=== PATIENT | male | born 1950 | race Caucasian/White ===

== ENCOUNTER 2022-05-06 17:15 | Emergency (ER) | payer OTHER, SELFPAY ==
[2022-05-06 17:30] VITALS: BP 137/79; PULSE 71; RESP 22; TEMP 36.7; O2SAT 96
--- NOTE | 2022-05-06 17:33 | DI.RAD.S_ITS ---
PROCEDURE: XR FINGER RT MIN 2V INDICATIONS: table saw injury TECHNIQUE: AP hand, 2 views of the 3rd and 4th finger(s) acquired. COMPARISON: None. FINDINGS: Bones: No fractures or dislocations. No suspicious bony lesions. Age-appropriate bony degenerative changes are seen. There is widening of the scapholunate interface. Soft tissues: Mild soft tissue irregularity can be seen of the 3rd and 4th fingers, with soft tissue gas and overlying bandaging material. No radiopaque foreign bodies are seen. IMPRESSION: Soft tissue injury, without a isiah associated fracture. No radiopaque foreign bodies are seen. If there is strong suspicion for developing osteomyelitis, please consider a dedicated MRI without and with contrast for further evaluation (assuming that there is no contraindication to MRI). Note is made of scapholunate interface widening. A scapholunate ligament tear is presumed. If it would be helpful for clinical management decision making, please consider a dedicated, scheduled wrist MRI for further evaluation (assuming that there is no contraindication). If there is strong clinical concern for a ligamentous abnormality, this should be performed according to the MR arthrogram protocol. Dictated by: Jose Perla M.D. on 05/06/2022 at 16:52 Approved by: Jose Perla M.D. on 05/06/2022 at 16:53
[2022-05-06] MEDS: ACETAMINOPHEN 325 MG TABLET 975 MG PO (18:13)
[2022-05-06] MEDS: TET,DIPH,PERTUSS(ACELL),VAC/PF 0.5 ML SYRINGE IM (18:17)
--- NOTE | 2022-05-06 18:44 | ED_ITS ---
HPI - Wound/Laceration <Edwin Daugherty PA-C - Last Filed: 05/06/22 20:41> General Chief Complaint: Wound/Laceration Stated Complaint: Rt Hand Finger(S) Laceration Time Seen by Provider: 05/06/22 18:12 Source: patient Mode of arrival: Ambulatory History of Present Illness HPI narrative: Patient is a 71-year-old male who presents to the emergency department for evaluation of right 2nd and 3rd digit lacerations. Patient explains that he cut his right 2nd 3rd fingers on a table saw at approximately 4:30 p.m. today. He states he was able to get bleeding under control with bandages at home and states that he does have good sensation throughout the fingers. Of note, he denies pain or injury elsewhere. He states he is unsure of when his most recent tetanus shot was administered. He denies fever, chills, chest pain, cough, shortness of breath, nausea, vomiting, diarrhea, constipation, abdominal pain, dysuria, hematuria, or any other concerning symptoms. No further concerns were voiced at this time. Related Data Previous Rx's Medication Instructions Recorded cephalexin 500 mg capsule 500 mg PO BID 7 days #14 caps 05/06/22 Review of Systems <Edwin Daugherty PA-C - Last Filed: 05/06/22 20:41> Constitutional Constitutional: Denies chills, Denies fatigue, Denies fever(s), Denies frequent falls, Denies lethargy and Denies weakness ENT Ears, Nose, Mouth, and Throat: Denies neck pain Cardiovascular Cardiovascular: Denies chest pain, Denies irregular heart rhythm, Denies lightheadedness, Denies palpitations, Denies dyspnea, Denies dyspnea on exertion and Denies orthopnea Respiratory Respiratory: Denies dyspnea and Denies dyspnea on exertion Gastrointestinal Gastrointestinal: Denies abdominal pain, Denies change in bowel habits, Denies diarrhea, Denies nausea and Denies vomiting Genitourinary Genitourinary: Denies hematuria, Denies flank pain, Denies urinary incontinence and Denies urinary urgency Musculoskeletal Musculoskeletal: Denies back pain, Denies muscle weakness, Denies neck pain, Denies numbness and Denies tingling Integumentary/Breasts Skin/Breast: Denies pruritus, Denies erythema, Denies rash and Reports wounds (Right 2nd and 3rd digit lacerations) Neurologic Neurologic: Denies frequent falls, Denies numbness, Denies tingling and Denies weakness Endocrine Endocrine: Denies fatigue and Denies palpitations Exam <Edwin Daugherty PA-C - Last Filed: 05/06/22 20:41> Narrative Exam Narrative: GENERAL: 71 year old patient appears stated age. Well-developed patient, in no acute distress. HEAD: Atraumatic. Normocephalic. EYES: Pupils equal round and reactive. Extraocular motions intact. No scleral icterus. No injection or drainage. ENT: Nose without bleeding, purulent drainage. Throat without erythema, tonsillar hypertrophy or exudate. Airway patent. NECK: Trachea midline. Non tender CARDIOVASCULAR: Regular rate and rhythm without murmurs, gallops, or rubs. RESPIRATORY: Clear to auscultation. Breath sounds equal bilaterally. No wheezes, rales, or rhonchi. GASTROINTESTINAL: Abdomen soft, non-tender, nondistended. EXTREMITIES: No edema or joint tenderness. BACK: Nontender without deformity or crepitance. No flank tenderness. NEURO: AOx3. SKIN: No rash or erythema of visible areas. Jagged lacerations noted to the right 2nd and 3rd digits over the palmar aspect of the right hand. Initial Vital Signs Initial Vital Signs: Vital Signs Temperature 98.1 F 05/06/22 17:30 Pulse Rate 71 05/06/22 17:30 Respiratory Rate 22 05/06/22 17:30 Blood Pressure 137/79 05/06/22 17:30 Pulse Oximetry 96 05/06/22 17:30 Oxygen Delivery Method 05/06/22 17:30 <Vita Patton MD - Last Filed: 05/07/22 02:28> Initial Vital Signs Initial Vital Signs: Vital Signs Temperature 98.1 F 05/06/22 17:30 Pulse Rate 71 05/06/22 17:30 Respiratory Rate 22 05/06/22 17:30 Blood Pressure 137/79 05/06/22 17:30 Pulse Oximetry 96 05/06/22 17:30 Oxygen Delivery Method 05/06/22 17:30 Procedures <Edwin Daugherty PA-C - Last Filed: 05/06/22 20:41> Laceration Repair Laceration 1: Time of procedure: 20:11 Site: hand (Second and 3rd digits) Side (If applicable): right Size (cm): 3 Description: irregular Depth: simple, single layer Local Anesthetic: lidocaine 1% Amount of anesthesia used (mL): 10 Pre-repair: wound explored, irrigated extensively, deep structures intact and cleansed with chlorhexadine Skin layer closed with: nylon Skin layer suture size: 5-0 Number of sutures: 26 Technique: simple, interrupted Course <Edwin Daugherty PA-C - Last Filed: 05/06/22 20:41> Course Course Narrative: Digital block performed, wound edges approximated with 26 total nylon sutures of 4-0 and 5-0 size. Patient tolerated procedure well. Wound edges approximated as best as possible considering extent of wound. Patient's tetanus shot updated today. Orders Ordered: ED Orders 05/06/22 17:33 XR finger RT min 2V Stat Discontinued Medications Acetaminophen (Acetaminophen 325 Mg Tablet) 975 mg PO NOW ONE Stop: 05/06/22 18:08 Last Admin: 05/06/22 18:13 Dose: 975 mg Documented By: PAPI Diphtheria/Tetanus/Acell Pertussis (Tet,Diph,Pertuss(Acell),Vac/Pf 0.5 Ml Syringe) 0.5 ml IM .ONCE ONE Stop: 05/06/22 18:15 Last Admin: 05/06/22 18:17 Dose: 0.5 ml Documented By: PAPI Vital Signs Vital signs: Vital Signs - 8 hr 05/06/22 17:30 Temperature 98.1 F Pulse Rate 71 Respiratory Rate 22 Blood Pressure 137/79 Pulse Oximetry 96 Oxygen Delivery Method Room Air <Vita Patton MD - Last Filed: 05/07/22 02:28> Orders Ordered: ED Orders 05/06/22 17:33 XR finger RT min 2V Stat Discontinued Medications Acetaminophen (Acetaminophen 325 Mg Tablet) 975 mg PO NOW ONE Stop: 05/06/22 18:08 Last Admin: 05/06/22 18:13 Dose: 975 mg Documented By: PAPI Diphtheria/Tetanus/Acell Pertussis (Tet,Diph,Pertuss(Acell),Vac/Pf 0.5 Ml Syringe) 0.5 ml IM .ONCE ONE Stop: 05/06/22 18:15 Last Admin: 05/06/22 18:17 Dose: 0.5 ml Documented By: PAPI Vital Signs Vital signs: Vital Signs - 8 hr 05/06/22 17:30 Temperature 98.1 F Pulse Rate 71 Respiratory Rate 22 Blood Pressure 137/79 Pulse Oximetry 96 Oxygen Delivery Method Room Air MDM - Wound/Laceration <Edwin Daugherty PA-C - Last Filed: 05/06/22 20:41> Imaging Data Extremity x-ray #1: Radiologist's Impression: PROCEDURE:? XR FINGER RT MIN 2V ? INDICATIONS:? table saw injury ? TECHNIQUE:? AP hand, 2 views of the 3rd and 4th finger(s) acquired.? ? COMPARISON:? None. ? FINDINGS:? ? Bones:? No fractures or dislocations.? No suspicious bony lesions.? ? Age-appropriate bony degenerative changes are seen.? There is widening of the scapholunate interface.? ? Soft tissues:? Mild soft tissue irregularity can be seen of the 3rd and 4th fin gers, with soft tissue gas and overlying bandaging material.? No radiopaque foreign bodies are seen. ? IMPRESSION:? Soft tissue injury, without a isiah associated fracture.? No radiopaque foreign bodies are seen.? ? If there is strong suspicion for developing osteomyelitis, please consider a dedicated MRI without and with contrast for further evaluation (assuming that there is no contraindication to MRI).? ? Note is made of scapholunate interface widening.? A scapholunate ligament tear is presumed. If it would be helpful for clinical management decision making, please consider a dedicated, scheduled wrist MRI for further evaluation (assuming that there is no contraindication).? If there is strong clinical concern for a ligamentous abnormality, this should be performed according to the MR arthrogram protocol.? ? ? Dictated by: Jose Perla M.D. on 05/06/2022 at 16:52 ? ? Approved by: Jose Perla M.D. on 05/06/2022 at 16:53? MDM Narrative Medical decision making narrative: Differential diagnosis to consider but limited to superficial laceration versus deep tissue laceration versus abscess formation versus tendon rupture. Wound edges were approximated with 4-0 and 5-0 nylon sutures. I instructed the patient to have the sutures remain in place for 7-10 days and to be evaluated by a medical professional before removal. Additionally, I discussed plan to start the patient on antibiotics. Patient expresses understanding and agrees to plan. He states that you follow-up with primary care to receive referral for hand surgery follow-up. Strict return precautions were discussed with the patient prior to discharge. Discharge Plan Departure Patient Disposition: Home Clinical Impression: Laceration of right index finger, Laceration of right middle finger Instructions: DI for Laceration Repair Activity Restrictions/Additional Instructions: *You have been diagnosed with a right index finger laceration, right middle finger laceration *What to do: *Please continue to take your regular medications as directed. [X] New medication prescriptions sent to your pharmacy: [facility] [ ] New medication written as a paper prescription [ ] No new medications given You were evaluated in the emergency department today for right 2nd and 3rd digit lacerations. Wound edges were approximated with nylon sutures in the emergency department. The sutures need to remain in place for 7-10 days, please follow-up with the primary care provider for further evaluation and management. I have prescribed you a course antibiotics and sent them to your preferred pharmacy. Please follow-up with the primary care provider regarding a referral to Hand surgery for further evaluation. Please do not hesitate to return to the emergency department if you experience fever, swelling around the laceration site, discharge from the lacerations, or any other concerning symptoms. *Please follow up with your primary care provider in 2-3 days, call for an appointment. Let them know you were seen in the Emergency Department and that we ask that you be seen in follow up. We will electronically transmit a record of today's note if your PCP is in our system *If you do not have a primary care provider please contact the [facility] Resource line at [phone]. They will ask some questions about your medical history and help get you set up with a doctor in the community. *Return to Emergency Department if you should have any new, worsening or concerning symptoms, such as [fever greater than 101 F, shaking chills, worsening pain, persistent vomiting or other bothersome symptoms] Prescriptions: New cephalexin 500 mg capsule 500 mg PO BID 7 Days Qty: 14 0RF Referrals: Phillip Marie ARNP [Primary Care Provider] - Visit Report Forms: Patient Portal/API <Vita Patton MD - Last Filed: 05/07/22 02:28> [facility] Audraature Attestation: I was immediately available in the department for consultation throughout this patient's visit. Patient was examined concurrently with Mr. Daugherty. Oversight of digital blocks and direct oversight with suturing was done. I agree with documentation as above. Vita Patton MD
--- NOTE | 2022-05-06 19:12 | PC.NURSE ---
Pt arrives with laceration injuries to the 3rd and 4th right hand fingers. States he was using a skillsaw at home and it twisted out of his hand. Right hand was irrigated with saline and thoroughly washed with Betasept. Provider at the bedside. Nerve block applied to the right hand by Dr. Patton and [place] [facility]. Tolerated wound care well.
--- NOTE | 2022-05-06 20:36 | PC.NURSE ---
fingers cleaned with water and wrapped with 4x4s and guaze
== END 2022-05-06 20:37 | disposition home or self-care (01) ==
PROVIDERS: Emergency Provider Physician Assistant; PCP Nurse Practitioner Family
DX: S61.210A Laceration without foreign body of right index finger without damage to nail, initial encounter (principal); S61.212A Laceration without foreign body of right middle finger without damage to nail, initial encounter; W27.0XXA Contact with workbench tool, initial encounter; Z23 Encounter for immunization
CPT/HCPCS: 12002; 73140; 90471; 99283; 90715

== ENCOUNTER 2023-05-02 11:46 | Emergency (ER) | payer OTHER, SELFPAY ==
[2023-05-02 11:50] VITALS: BP 126/76; PULSE 86; RESP 18; TEMP 36.8; O2SAT 98; BMI 35.6
--- NOTE | 2023-05-02 13:05 | DI.RAD.S_ITS ---
PROCEDURE: XR TIBIA FUBULA RT 2V INDICATIONS: for subcutaneous air, cellulitis, no wound TECHNIQUE: 2 views of the tibia and fibula were acquired. COMPARISON: None. FINDINGS: Bones: No fractures or dislocations. No suspicious bony lesions. Soft tissues: No suspicious soft tissue calcifications or masses. No subcutaneous gas. IMPRESSION: No subcutaneous gas or bony erosion. Dictated by: Guerrero Bueno M.D. on 05/02/2023 at 13:50 Approved by: Guerrero Bueno M.D. on 05/02/2023 at 13:51
--- NOTE | 2023-05-02 13:07 | ED_ITS ---
HPI - Extremity Problem <DONTAE Velásquez - Last Filed: 05/02/23 15:12> General Chief complaint: Extremity Problem,Nontraumatic Stated complaint: rash on lower LT leg T-4 getting worse Time Seen by Provider: 05/02/23 12:54 Source: patient Mode of arrival: Ambulatory History of Present Illness HPI Narrative: This is a 72-year-old male who presents to the emergency department complaining of a rash to his left lower extremity that is painful when dependent that he noticed approximately 4 days ago and has been progressive. He states that four days ago he started feeling poorly after doing some yd work during the day and had fatigue, chills, fever, vomiting x2 and states that he felt poorly for those 2 days and started to feel better on the 3rd day, he states that is when the rash started to get worse on his lower leg, denies any wound or any recent trauma. States that he is had a history of pulmonary embolus in the past after surgery but this was 10 years ago, he is not anticoagulated, denies any shortness of breath, chest pain, dizziness, or other symptom. He states that he felt unsteady father's 1st 2 days when he was ill. Denies any upper respiratory symptoms but states that he was taking Benadryl to help him sleep because he was not able to sleep. He states that 2 days of taking Benadryl to sleep helped him feel better and then now he is concerned about necrotizing skin infection to his left lower extremity. Patient has an avulsed toenail on left that he states he stubbed and it is partially removed Related Data Previous Rx's Medication Instructions Recorded doxycycline hyclate 100 mg capsule 100 mg PO BID 10 days #20 caps 05/02/23 hydrocodone 5 mg-acetaminophen 325 1 tab PO TID PRN pain #10 tabs 05/02/23 mg tablet Allergies Allergy/AdvReac Type Severity Reaction Status Date / Time No Known Drug Allergies Allergy Verified 05/02/23 11:57 Review of Systems <DONTAE Velásquez - Last Filed: 05/02/23 15:12> Review of Systems ROS Unobtainable: All systems reviewed & are unremarkable except as noted in HPI and below Patient History <DONTAE Velásquez - Last Filed: 05/02/23 15:12> Social History Smoking Status: Former smoker Smoking Status: Former smoker alcohol intake frequency: holidays/special occasions only Substance Use Type: does not use Exam <DONTAE Velásquez - Last Filed: 05/02/23 15:12> Narrative Exam Narrative: Reviewed vitals signs and nursing notes. General: Pleasant, sitting upright, in no acute distress, well groomed, afebrile HEENT: symmetrical facial expressions, moist mucous membranes, neck is supple CV: regular rate and rhythm, warm extremities Respiratory: normal work of breathing, without tachypnea or hypoxia. MSK: moves all extremities, no weakness, normal tone, ambulatory without deficit, erythematous left lower extremity concerning for cellulitis, it is not circumferential but it is the anterior and 3/4 of the lower left extremity, no wound, no drainage, no blisters, no gastrocnemius tenderness to palpation, negative Homans sign and no circumferential edema, erythematous region is warm to touch and tender Skin: brisk capillary refill, without rash or wound Neuro: clear speech and normal cognition, A&O x3, GCS 15, no focal motor or sensation deficits Initial Vital Signs Initial Vital Signs: Vital Signs Temperature 98.2 F 05/02/23 11:50 Pulse Rate 86 05/02/23 11:50 Respiratory Rate 18 05/02/23 11:50 Blood Pressure 126/76 05/02/23 11:50 Pulse Oximetry 98 05/02/23 11:50 Oxygen Delivery Method Room Air 05/02/23 11:50 <Adonay Rudolph DO - Last Filed: 05/03/23 08:56> Initial Vital Signs Initial Vital Signs: Vital Signs Temperature 98.2 F 05/02/23 11:50 Pulse Rate 86 05/02/23 11:50 Respiratory Rate 18 05/02/23 11:50 Blood Pressure 126/76 05/02/23 11:50 Pulse Oximetry 98 05/02/23 11:50 Oxygen Delivery Method Room Air 05/02/23 11:50 Course <DONTAE Velásquez - Last Filed: 05/02/23 15:12> Orders Ordered: Discontinued Medications Doxycycline Hyclate (Doxycycline Hyclate 100 Mg Tablet) 100 mg PO NOW ONE Stop: 05/02/23 13:18 Last Admin: 05/02/23 14:44 Dose: 100 mg Documented By: PAPI Ceftriaxone Sodium 2,000 mg/ (Sodium Chloride) 100 mls @ 200 mls/hr IV NOW ONE Stop: 05/02/23 13:18 Last Infusion: 05/02/23 15:16 Dose: 0 mls/hr Documented By: Admin: 05/02/23 14:44 Dose: 200 mls/hr Documented By: PAPI Vital Signs Vital signs: Vital Signs - 8 hr 05/02/23 11:50 Temperature 98.2 F Pulse Rate 86 Respiratory Rate 18 Blood Pressure 126/76 Pulse Oximetry 98 Oxygen Delivery Method Room Air <Adonay Rudolph DO - Last Filed: 05/03/23 08:56> Orders Ordered: Discontinued Medications Doxycycline Hyclate (Doxycycline Hyclate 100 Mg Tablet) 100 mg PO NOW ONE Stop: 05/02/23 13:18 Last Admin: 05/02/23 14:44 Dose: 100 mg Documented By: PAPI Ceftriaxone Sodium 2,000 mg/ (Sodium Chloride) 100 mls @ 200 mls/hr IV NOW ONE Stop: 05/02/23 13:18 Last Infusion: 05/02/23 15:16 Dose: 0 mls/hr Documented By: Admin: 05/02/23 14:44 Dose: 200 mls/hr Documented By: PAPI Vital Signs Vital signs: Vital Signs - 8 hr 05/02/23 11:50 Temperature 98.2 F Pulse Rate 86 Respiratory Rate 18 Blood Pressure 126/76 Pulse Oximetry 98 Oxygen Delivery Method Room Air MDM - Extremity (Nontraumatic) <DONTAE Velásquez - Last Filed: 05/02/23 15:12> Lab Data 05/02/23 14:03 05/02/23 14:03 Labs: Lab Results 05/02/23 05/02/23 05/02/23 Range/Units 14:03 14:03 14:03 WBC 8.8 (4.5-11.0) X10^3/uL RBC 4.64 (4.5-5.9) X10^6/uL Hgb 14.8 (13.5-17.5) g/dL Hct 42.3 (41-53) % MCV 91.0 (80-100) fL MCH 31.9 (26-34) PG MCHC 35.1 (30-36) % RDW 13.4 (11.6-14.8) % Plt Count 178 (150-400) X10^3/uL Neut % (Auto) 68.6 (50-75) % Lymph % (Auto) 19.0 L (25-40) % [place] % (Auto) 10.2 (3-14) % Eos % (Auto) 1.7 L (2-4) % Baso % (Auto) 0.5 (0-2) % Neut # (Auto) 6000 (0231-8870) /uL Lymph # (Auto) 1700 (4680-2134) /uL [place] # (Auto) 900 (0-900) /uL Eos # (Auto) 200 (0-450) /uL Baso # (Auto) 0 (0-100) /uL Sodium 137 (137-145) mmol/L Potassium 3.7 (3.4-5.1) mmol/L Chloride 102 (98-107) mmol/L Carbon Dioxide 27 (22-32) mmol/L BUN 20 (9-20) mg/dL Creatinine 1.13 (0.66-1.25) mg/dL Estimated GFR > 60 (>60) mL/min BUN/Creatinine Ratio 17.7 (6-22) Glucose 130 H (80-110) mg/dL Lactate 1.6 (0.7-2.1) mmol/L Calcium 9.0 (8.4-10.2) mg/dL Total Bilirubin 0.4 (0.2-1.3) mg/dL AST 45 (17-59) IU/L ALT 53 H (<50) IU/L Alkaline Phosphatase 89 (38-126) U/L Total Protein 7.3 (6.3-8.2) g/dL Albumin 4.0 (3.5-5.0) g/dL Globulin 3.3 (1.7-4.1) g/dL Albumin/Globulin Ratio 1.2 (1.0-2.8) Imaging Data Extremity x-ray #1: Radiologist's Impression: PROCEDURE:? XR TIBIA FUBULA RT 2V ? INDICATIONS:? for subcutaneous air, cellulitis, no wound ? TECHNIQUE:? 2 views of the tibia and fibula were acquired.? ? COMPARISON:? None. ? FINDINGS:? ? Bones:? No fractures or dislocations.? No suspicious bony lesions.? ? Soft tissues:? No suspicious soft tissue calcifications or masses.? No subcutaneous gas. ? IMPRESSION:? No subcutaneous gas or bony erosion. ? ? Dictated by: Guerrero Bueno M.D. on 05/02/2023 at 13:50 ? ? Approved by: Guerrero Bueno M.D. on 05/02/2023 at 13:51 ? MDM Narrative Medical decision making narrative: Chief Complaint: leg pain, redness Primary historian: Patient Multiple etiologies for patient's complaint considered including, but not limited to: Cellulitis, necrotizing skin infection, lymphangitis DVT, foreign body allergic reaction I have independently reviewed the patient's vital signs and nursing notes as well as prior records if available. My interpretation of imaging: No subcutaneous air visualized on left tib-fib x-ray Course of care: Patient nontoxic appearing, arrives with what appears to be cellulitis of his left lower extremity, it is not circumferential, does not track along venous deep vein system, he had illness symptoms to in 3 days ago including fever, chills, vomiting and than the erythema to his left lower extremity became more parent and now painful when dependent. There is no subcutaneous air on tib-fib x-ray, no foreign body, or recent trauma. He does have an avulsed toenail on the right which has fungal growth, he had stubbed it on something and caused it to lift up, this was removed by myself, patient tolerated it well, Xeroform was applied and a gauze dressing, it is stented open the cuticle and patient is encouraged to leave this dressing on for 24 to 48 hours to help protect his toe and to keep his feet clean and dry. Patient's lab work overall is reassuring, no leukocytosis, mild lymphopenia suggesting possible viral illness which is what he was sick a few days ago. Today he is afebrile, pain is not too severe if it is elevated, he was treated with 2 g of IV ceftriaxone, doxycycline in prescribed doxycycline b.i.d. times 10 days. Encouraged him to follow-up with his PCP if he has any worsening and to return to the emergency department if he develops any fever, chills, nausea vomiting again. Social considerations that may affect disposition: none Questions are addressed and there is agreement with the plan and for follow-up. I consulted with the ED attending physician Dr. Rudolph as needed for higher level of care considerations and they were available for discussion and recommendations regarding plan of care and diagnostic testing. Patient is appropriate for outpatient management. <Adonay Rudolph, DO - Last Filed: 05/03/23 08:56> Lab Data Labs: Lab Results 05/02/23 05/02/23 05/02/23 Range/Units 14:03 14:03 14:03 WBC 8.8 (4.5-11.0) X10^3/uL RBC 4.64 (4.5-5.9) X10^6/uL Hgb 14.8 (13.5-17.5) g/dL Hct 42.3 (41-53) % MCV 91.0 (80-100) fL MCH 31.9 (26-34) PG MCHC 35.1 (30-36) % RDW 13.4 (11.6-14.8) % Plt Count 178 (150-400) X10^3/uL Neut % (Auto) 68.6 (50-75) % Lymph % (Auto) 19.0 L (25-40) % [place] % (Auto) 10.2 (3-14) % Eos % (Auto) 1.7 L (2-4) % Baso % (Auto) 0.5 (0-2) % Neut # (Auto) 6000 (4110-2736) /uL Lymph # (Auto) 1700 (7701-4948) /uL [place] # (Auto) 900 (0-900) /uL Eos # (Auto) 200 (0-450) /uL Baso # (Auto) 0 (0-100) /uL Sodium 137 (137-145) mmol/L Potassium 3.7 (3.4-5.1) mmol/L Chloride 102 (98-107) mmol/L Carbon Dioxide 27 (22-32) mmol/L BUN 20 (9-20) mg/dL Creatinine 1.13 (0.66-1.25) mg/dL Estimated GFR > 60 (>60) mL/min BUN/Creatinine Ratio 17.7 (6-22) Glucose 130 H (80-110) mg/dL Lactate 1.6 (0.7-2.1) mmol/L Calcium 9.0 (8.4-10.2) mg/dL Total Bilirubin 0.4 (0.2-1.3) mg/dL AST 45 (17-59) IU/L ALT 53 H (<50) IU/L Alkaline Phosphatase 89 (38-126) U/L Total Protein 7.3 (6.3-8.2) g/dL Albumin 4.0 (3.5-5.0) g/dL Globulin 3.3 (1.7-4.1) g/dL Albumin/Globulin Ratio 1.2 (1.0-2.8) Discharge Plan Departure Patient Disposition: Home Clinical Impression: Cellulitis Avulsed toenail Qualifiers: Encounter type: initial encounter Qualified Code(s): S91.209A - Unspecified open wound of unspecified toe(s) with damage to nail, initial encounter Instructions: DI for Cellulitis -- Adult Activity Restrictions/Additional Instructions: *You have been diagnosed with a tiny avulsion and cellulitis of your left lower extremity. Please start this antibiotic and take it for 10 days. Stay hydrated, if you have worsening of this, please come back for another evaluat ion, try to keep this leg elevated, use an Thomas bandage for compression as needed, okay for pain pills if you need 1, follow-up with regular doctor for any other concerns. Please follow-up with Podiatry as needed for your toenail. Okay to remove this dressing after tomorrow, it is okay to leave it on for 24-48 hours as well. Please use a nonstick dressing or pull I antibiotic ointment and a Band-Aid to help protect your toe from injury. It was a pleasure to meet you today, thank you for your education, we will call you if the blood cultures come back positive and if there is concern for bacterial infection. If you have worsening of your symptoms and start vomiting or develop fever chills, please come back to the emergency department. *What to do: *Please continue to take your regular medications as directed. [ x] New medication prescriptions sent to your pharmacy: [[facility] ] [ ] New medication written as a paper prescription [ ] No new medications given *Please call and schedule follow up with your primary care provider in 2-3 days, at least for an update. Let them know you were seen in the Emergency Department for the above problem. We will electronically transmit a record of today's note if your PCP or specialist is in our system. *If you do not have a primary care provider please contact [phone] to establish care with one of the [facility] primary care providers. *Return to the Emergency Department for worsening symptoms, inability to keep liquids down, fever greater than 101F, chills, or other concerning symptom. Prescriptions: New doxycycline hyclate 100 mg capsule 100 mg PO BID 10 Days Qty: 20 0RF hydrocodone-acetaminophen 5-325 mg tablet 1 tab PO TID PRN (Reason: pain) Qty: 10 0RF Referrals: Phillip Marie ARNP [Primary Care Provider] - Stand Alone Forms: Patient Portal/API <Adonay Rudolph DO - Last Filed: 05/03/23 08:56> Cosign ED Attending Audraature Attestation: I was immediately available in the department for consultation. Documentation has been reviewed. I agree with assessment and plan.
[2023-05-02 14:19] LABS: Add Manual Diff / Slide Review NO; Basophils Absolute Auto 0 /uL (0-100); Basophils Percent Auto 0.5 % (0-2); Eosinophils Absolute Auto 200 /uL (0-450); Eosinophils Percent Auto 1.7 % (2-4); Hematocrit 42.3 % (41-53); Hemoglobin 14.8 g/dL (13.5-17.5); Lymphocytes Absolute Auto 1700 /uL (1100-4500); Mean Corpuscular HGB Conc 35.1 % (30-36); Mean Corpuscular Hemoglobin 31.9 PG (26-34); Monocytes Absolute Auto 900 /uL (0-900); Monocytes Percent Auto 10.2 % (3-14); Neutrophils Absolute Auto 6000 /uL (1500-7000); Neutrophils Percent Auto 68.6 % (50-75); Platelet Count 178 X10^3/uL (150-400); Red Blood Cell Count 4.64 X10^6/uL (4.5-5.9); Red Cell Distribution Width 13.4 % (11.6-14.8); White Blood Cell Count 8.8 X10^3/uL (4.5-11.0)
--- NOTE | 2023-05-02 14:36 | PC.NURSE ---
lab called for second set of cultres at 1345. explained to pt, antibiotics to be given after blood is drawn
[2023-05-02 14:37] LABS: Alanine Aminotransferase 53 IU/L (<50); Albumin Globulin Ratio 1.2 (1.0-2.8); Alkaline Phosphatase 89 U/L (38-126); Aspartate Aminotransferase 45 IU/L (17-59); BUN Creatinine Ratio 17.7 (6-22); Bilirubin Total 0.4 mg/dL (0.2-1.3); Blood Urea Nitrogen 20 mg/dL (9-20); Carbon Dioxide 27 mmol/L (22-32); Chloride 102 mmol/L (98-107); Estimated Glomerular Filt Rate > 60 mL/min (>60); Globulin 3.3 g/dL (1.7-4.1); Glucose 130 mg/dL (80-110); HEMOLYSIS < 15 (0-50); Potassium 3.7 mmol/L (3.4-5.1); Sodium 137 mmol/L (137-145); Total Protein 7.3 g/dL (6.3-8.2)
[2023-05-02] MEDS: cefTRIAXone 2,000 MG in SODIUM CHLORIDE 0.9% 100 ML 200 MG IV (14:44)
[2023-05-02] MEDS: DOXYCYCLINE HYCLATE 100 MG TABLET PO (14:44)
[2023-05-02 15:04] VITALS: PULSE 84; O2SAT 96
[2023-05-02 15:06] VITALS: PULSE 79; O2SAT 96
[2023-05-02 15:07] VITALS: BP 116/72
[2023-05-02 15:29] LABS: Lactate (Lactic Acid) 1.6 mmol/L (0.7-2.1)
== END 2023-05-02 15:31 | disposition home or self-care (01) ==
PROVIDERS: Emergency Provider Nurse Practitioner Critical Care Medicine; PCP Nurse Practitioner Family
DX: L03.116 Cellulitis of left lower limb (principal); S91.209A Unspecified open wound of unspecified toe(s) with damage to nail, initial encounter
CPT/HCPCS: 36415; 73590; 80053; 83605; 85025; 87040; 96365; 99284; J0696

== ENCOUNTER 2023-10-30 08:55 | Emergency (ER) | payer OTHER, SELFPAY ==
[2023-10-30 09:16] VITALS: BP 127/69; PULSE 90; RESP 20; TEMP 37.7; O2SAT 95; BMI 34.5
--- NOTE | 2023-10-30 09:20 | ED.URI ---
HPI - URI/Sore Throat General Chief Complaint: Upper Respiratory Symptoms Stated Complaint: was diagnosed with rsv symotoms worse cough Time Seen by Provider: 10/30/23 09:01 Source: patient Mode of arrival: Wheelchair History of Present Illness HPI Narrative: 72-year-old male without significant chronic medical history presents with a chief complaint of a hacking cough that kept him up all night. He denies any fever or significant shortness of breath. He states his has similar symptoms and was confirmed to have RSV over the weekend. He denies chest pain or trouble breathing. He denies nausea, vomiting or diarrhea. Related Data Previous Rx's Medication Instructions Recorded hydrocodone 5 mg-acetaminophen 325 1 tab PO TID PRN pain #10 tabs 05/02/23 mg tablet benzonatate 200 mg capsule 200 mg PO BID PRN cough #20 caps 10/30/23 Allergies Allergy/AdvReac Type Severity Reaction Status Date / Time No Known Drug Allergies Allergy Verified 10/30/23 09:20 Review of Systems Review of Systems Narrative: GENERAL: See HPI HEENT: Denies sinus pain, ear pain, sore throat, difficulty swallowing, dizziness. RESPIRATORY: See HPI CARDIOVASCULAR: Denies chest pain, palpitations, orthopnea, edema, GASTROINTESTINAL: Denies nausea, vomiting, abdominal pain, diarrhea, constipation, melena. : Denies dysuria, frequency, incontinence, hematuria, urinary retention. MUSCULOSKELETAL: denies weakness, joint pain, or bony pain SKIN: Denies rash, skin lesions, or other NEUROLOGIC: Denies weakness, headache, numbness, change in speech, confusion, seizures, incoordination. PSYCHIATRIC: No concerning psychosocial issues. 12 point review of systems is negative except for those stated above Patient History Social History Smoking Status: Former smoker Smoking Status: Former smoker alcohol intake frequency: holidays/special occasions only Substance Use Type: does not use Exam Narrative Exam Narrative: GEN: AOx3 and in mild distress EYES: Pupils are equal, round, and reactive to light and accommodation. Extraoccular muscles are intact bilaterally. There is no subconjunctival hemorrhage or exudate. CHEST: Lungs are clear to auscultation bilaterally and free of wheezes, rales, or rhonchi. Heart rate is regular rhythm, there are no murmurs, clicks, rubs, or gallops. There is no chest wall tenderness. ABD: Abdomen is soft and nontender. There is no guarding or rebound. Bowel sounds are normal in all 4 quadrants. There is no mass or organomegaly. EXT: Full painless ROM of all extremities with no loss of sensation or strength. SKIN: Warm, pink, and dry. No erythema or rash Initial Vital Signs Initial Vital Signs: Vital Signs Temperature 99.9 F H 10/30/23 09:16 Pulse Rate 90 10/30/23 09:16 Respiratory Rate 20 10/30/23 09:16 Blood Pressure 127/69 10/30/23 09:16 Pulse Oximetry 95 10/30/23 09:16 Oxygen Delivery Method Room Air 10/30/23 09:16 Course Orders Ordered: ED Orders 10/30/23 09:22 Covid-19 + FLU A/B + RSV - PCR Stat 10/30/23 09:25 Chest [XR chest 1V] Stat Vital Signs Vital signs: Vital Signs - 8 hr 10/30/23 09:16 Temperature 99.9 F H Pulse Rate 90 Respiratory Rate 20 Blood Pressure 127/69 Pulse Oximetry 95 Oxygen Delivery Method Room Air MDM - URI/Sore Throat MDM Narrative Medical decision making narrative: [72 year old patient presents with cough Multiple etiologies for patient's symptoms considered including, but not limited to: [Flu versus RSV versus COVID versus pneumonia] Prior Charts reviewed in our EMR Primary Historian: patient Labs reviewed and interpreted by myself: Respiratory swab was obtained but lost during transport, I did discuss with the patient the utility of repeating this and we sure the opinion that it is extremely unlikely that the result would change the outcome so we elected to hold off Imaging reviewed: Chest x-ray without acute findings Patient with reassuring history and physical exam, no hypoxemia, stable vitals, no indication that large, significant lab workup is indicated Findings and discharge diagnosis discussed with patient/family followed by verbalization of understanding Return precautions discussed with patient/family whom verbalize understanding of diagnosis and plan Discharge Plan Departure Patient Disposition: Home Clinical Impression: Respiratory syncytial virus (RSV) Instructions: DI for Respiratory Syncytial Virus -- Adults Activity Restrictions/Additional Instructions: *You have been diagnosed with [various symptoms due to viral upper respiratory infection, most likely RSV given your known exposure *What to do: *Please consider the use of [id number] antihistamines such as Zyrtec, Ene, or Claritin which can dry the secretions that are causing many of these symptoms. *Please use [id number]-tiq-[id number] Tylenol or Motrin for pain, it can be helpful to take it on a schedule for a few days to get ahead of the pain and inflammation * your history and physical exam are very reassuring and there is no indication that the symptoms are due to a bacterial infection, therefore there is no indication for antibiotics. *Please follow up with your primary care provider in 2-3 days, call for an appointment. Let them know you were seen in the Emergency Department and that we ask that you be seen in follow up. We will electronically transmit a record of today's note if your PCP is in our system *If you do not have a primary care provider please contact the [facility] Resource line at [phone]. They will ask some questions about your medical history and help get you set up with a doctor in the community. *Return to Emergency Department if you should have any new, worsening or concerning symptoms such as difficulty breathing, persistent vomiting, shaking chills or other concerning symptoms Prescriptions: New benzonatate 200 mg capsule 200 mg PO BID PRN (Reason: cough) Qty: 20 0RF No Action hydrocodone-acetaminophen 5-325 mg tablet 1 tab PO TID PRN (Reason: pain) Qty: 10 0RF Referrals: Phillip Marie ARNP [Primary Care Provider] - Stand Alone Forms: Patient Portal/API
--- NOTE | 2023-10-30 09:25 | DI.RAD.S_ITS ---
PROCEDURE: XR CHEST 1V INDICATIONS: SOB, cough TECHNIQUE: One view of the chest was acquired. COMPARISON: [facility], , CHEST 2 VIEW, 05/21/2013, 10:02. FINDINGS: Surgical changes and devices: None. Lungs and pleura: Lungs are clear. No pleural effusions or pneumothorax. Mediastinum: Mediastinal contours appear normal. Heart size is normal. Aortic arch is calcified, indicating atherosclerosis. Bones and chest wall: No suspicious bony lesions. Overlying soft tissues appear unremarkable. IMPRESSION: No acute cardiopulmonary process. Dictated by: Gregor Kaplan M.D. on 10/30/2023 at 9:48 Approved by: Gregor Kaplan M.D. on 10/30/2023 at 9:48
[2023-10-30 11:13] LABS: Influenza A - CEPHEID Flu A NEGATIVE (NEGATIVE); Influenza B - CEPHEID Flu B NEGATIVE (NEGATIVE); Respiratory Syncytial Virus POSITIVE (Negative)
[2023-10-30 11:22] LABS: COVID-19 CEPHEID 4-PLEX PCR Negative (Negative)
== END 2023-10-30 10:51 | disposition home or self-care (01) ==
PROVIDERS: Emergency Provider Emergency Medicine; PCP Nurse Practitioner Family
DX: J06.9 Acute upper respiratory infection, unspecified (principal); B97.4 Respiratory syncytial virus as the cause of diseases classified elsewhere; Z11.52 Encounter for screening for COVID-19
CPT/HCPCS: 0241U; 71045; 99281

== ENCOUNTER → 2025-09-28 08:55 | Outpatient (CLI) | payer OTHER, SELFPAY | LOC: ECHO 08:56 | PROVIDERS: PCP Nurse Practitioner Family; Referring Provider Internal Medicine; Visit Provider Internal Medicine | DX: I07.1 Rheumatic tricuspid insufficiency (principal); R06.09 Other forms of dyspnea; I77.810 Thoracic aortic ectasia | CPT/HCPCS: 93306 ==